=== PATIENT | female | born 1930 | race Caucasian/White ===

== ENCOUNTER 2016-04-10 17:06 | Inpatient (IN) | payer MEDICARE, OTHER ==
--- NOTE | 2016-04-10 17:19 | ED ---
Extremity Problem HPI - General Stated complaint: Fall/Hip Injury Time Seen by Provider: 04/10/16 17:07 Source: RN notes reviewed - History of Present Illness Initial comments: 86-year-old female presents emergency Department chief complaint of left hip pain. Patient was getting up from the chair she tripped and fell. Patient states that she fell onto her left side. Patient complains of left hip pain. Patient states she did hit her head. Son states that she did not. Waiting for left-sided had for some discomfort. Patient states it hurts if you touch or move the hip that if she sits still she does feel better. Patient did receive morphine via EMS. Patient states that she has no other symptoms at this time. Patient was not able to ambulate after the incident. Patient denies any recent fever, chills, shortness of breath, chest pain, back pain, abdominal pain, nausea vomiting, numbness or tingling, dysuria or hematuria, constipation or diarrhea, headaches or visual changes, or any other current symptoms. - Related Data Home Medications Medication Instructions Recorded Confirmed Aspirin 81 mg PO DAILY 09/16/15 04/10/16 Atorvastatin [Lipitor] 10 mg PO HS 09/16/15 04/10/16 Digoxin [Digitek] 125 mcg PO DAILY 09/16/15 04/10/16 Donepezil HCl [Aricept] 10 mg PO HS 09/16/15 04/10/16 Isosorbide Mononitrate [Isosorbide 30 mg PO QAM 09/16/15 04/10/16 Mononitrate ER] Sertraline [Zoloft] 100 mg PO HS 11/03/15 04/10/16 ALPRAZolam [Xanax] 0.5 mg PO DAILY PRN 04/10/16 04/10/16 Loratadine 10 mg PO DAILY 04/10/16 04/10/16 Mirtazapine [Remeron] 15 mg PO HS 04/10/16 04/10/16 traZODone HCL 100 mg PO HS PRN 04/10/16 04/10/16 Previous Rx's Medication Instructions Recorded amLODIPine [Norvasc] 5 mg PO DAILY #30 tab 10/04/15 HYDROcodone/APAP 7.5-325MG [Orrick 1 tab PO Q6HR PRN #20 tab 11/07/15 7.5-325] Allergies Allergy/AdvReac Type Severity Reaction Status Date / Time Penicillins Allergy Unknown Verified 04/10/16 17:53 Childhood Review of Systems ROS Statement: Those systems with pertinent positive or pertinent negative responses have been documented in the HPI. ROS Other: All systems not noted in ROS Statement are negative. Past Medical History Past Medical History: Asthma, CVA/TIA, Dementia, Hypertension Additional Past Medical History / Comment(s): heart murmur,leaky valves ,freq diarrhea,poor appetite. History of Any Multi-Drug Resistant Organisms: None Reported Past Surgical History: Appendectomy, Tonsillectomy Additional Past Surgical History / Comment(s): sigmodioscopy Past Anesthesia/Blood Transfusion Reactions: Motion Sickness Past Psychological History: Anxiety Additional Psychological History / Comment(s): OCD Smoking Status: Never smoker Past Alcohol Use History: None Reported Past Drug Use History: None Reported - Past Family History Son(s) Family Medical History: COPD, CVA/TIA Additional Family Medical History / Comment(s): brain aneurysm Mother History Unknown: Yes Father History Unknown: Yes General Exam - General Exam Comments Initial Comments: General: The patient is awake and alert, in no distress, and does not appear acutely ill. Eye: Pupils are equal, round and reactive to light, extra-ocular movements are intact; there is normal conjunctiva bilaterally. No signs of icterus. Ears, nose, mouth and throat: There are moist mucous membranes. Neck: The neck is supple, there is no tenderness. Cardiovascular: There is a regular rate and rhythm. No murmur, rub or gallop is appreciated. Respiratory: Lungs are clear to auscultation, respirations are non-labored, breath sounds are equal. No wheezes, stridor, rales, or rhonchi. Gastrointestinal: Soft, non-distended, non-tender abdomen without masses or organomegaly noted. There is no rebound or guarding present. No CVA tenderness. Bowel sounds are unremarkable. Back: There is no tenderness to palpation in the midline. There is no obvious deformity. No rashes noted. Musculoskeletal: Tenderness leftlateralaspectofthehipandintheleftgroinpatientdoeshavepositivepelvicrocktestn egativelogrolltest.Tendernesswithrangeofmotionofthehip. There is no pedal edema. There is no calf tenderness or swelling. Sensation intact. Pulses equal bilaterally 2+. Neurological: CN II-XII intact, There are no obvious motor or sensory deficits. Coordination appears grossly intact. Speech is normal. Skin: Skin is warm and dry and no rashes or lesions are noted. Psychiatric: Cooperative, appropriate mood & affect, normal judgment. Course Vital Signs 04/10/16 17:20 Temperature 97.2 F L Pulse Rate 68 Respiratory 18 Rate Blood Pressure 114/61 O2 Sat by Pulse 91 L Oximetry Medical Decision Making - Medical Decision Making 86-year-old male presents with left hip pain after fall. Patient is complaining of some left hip pain as well. At this time we will get an x-ray and CT. This time the x-ray and the CT are reviewed. Patient does appear to have a pelvic rami fracture. Patient is unable to bear weight in the room and unable to walk. At this time we will admit patient to Dr. marin hernandez. We will consult orthopedics for the patient as well. We discussed the family patient management treatment plan. Disposition Clinical Impression: Fall, Pelvis fracture, Unable to walk Disposition: ADMITTED IP TO THIS [facility] Condition: Stable Time of Disposition: 18:17 Decision Date: 04/10/16 Decision Time: 18:17
--- NOTE | 2016-04-10 17:38 | CT ---
EXAMINATION TYPE: CT brain wo con DATE OF EXAM: 04/10/2016 5:33 PM COMPARISON: 11/03/2015 HISTORY: Fall injury today. CT DLP: 912.6 mGycm Automated exposure control for dose reduction was used. FINDINGS: There is cerebral cortical atrophy. There is no mass effect nor midline shift. There is no evidence o f intracranial hemorrhage. The calvarium appears intact. IMPRESSION: Cerebral atrophy. No acute intracranial abnormality. No change.
--- NOTE | 2016-04-10 17:51 | XR ---
EXAMINATION TYPE: XR Hip LT and AP Pelvis DATE OF EXAM: 04/10/2016 5:40 PM COMPARISON: NONE HISTORY: Hip and pelvis pain TECHNIQUE: A single AP view of the pelvis is obtained. Two views of the left hip are obtained. FINDINGS: There is comminuted fracture of the left superior and inferior pubic rami near the pubic sy mphysis. The proximal femurs are intact. Hip joint spaces are fairly normal. Acetabula appear intact. IMPRESSION: There is comminuted pubic rami fractures on the left side without significant displacemen t. No hip joint fracture seen.
[2016-04-10] MEDS ORDERED: ACETAMINOPHEN TAB 500 MG TAB PO STA (18:09)
[2016-04-10] MEDS ORDERED: ONDANSETRON 4 MG/2 ML VIAL IVP PRN (18:17)
[2016-04-10] MEDS ORDERED: HYDROcodone/APAP 5-325MG 1 EACH TAB PO PRN (18:17)
[2016-04-10] MEDS ORDERED: ACETAMINOPHEN TAB 325 MG TAB PO PRN (18:17)
[2016-04-10] MEDS ORDERED: NALOXONE 0.4 MG/ML 1 ML VIAL IV PRN (18:17)
[2016-04-10] MEDS ORDERED: MORPHINE SULFATE 4 MG/ML SYRINGE IV PRN (18:17)
[2016-04-10] MEDS ORDERED: traZODone HCL 100 MG TAB PO PRN (18:18)
[2016-04-10] MEDS ORDERED: ALPRAZolam 0.5 MG TAB PO PRN (18:18)
[2016-04-10] MEDS ORDERED: HYDROcodone/APAP 7.5-325MG 1 EACH TAB PO PRN (18:18)
[2016-04-10] MEDS: SODIUM CHLORIDE 0.9% 1,000 ML IV SCH (18:56)
[2016-04-10 19:10] LABS: Basophils % (A) 0 %; CH 31.3; CHCM 32.9; Eosinophils # (A) 0.5 k/uL (0-0.7); Eosinophils % (A) 4 %; HCT 36.1 % (34.0-46.0); HDW 2.71; HGB 11.7 gm/dL (11.4-16.0); Luc % (Auto) 1; Lymphocytes # (A) 0.9 k/uL (1.0-4.8); Lymphocytes % (A) 7 %; MCH 31.2 pg (25.0-35.0); MCHC 32.6 g/dL (31.0-37.0); MCV 95.8 fL (80.0-100.0); Mean Platelet Volume 8.8; Monocytes # (A) 0.6 k/uL (0-1.0); Monocytes % (A) 5 %; Neutrophils % (A) 84 %; RBC 3.76 m/uL (3.80-5.40); RDW 14.4 % (11.5-15.5); WBC 13.1 k/uL (3.8-10.6); WBC (Perox) 14.23
[2016-04-10 19:25] LABS: ALT 28 U/L (9-52); AST 33 U/L (14-36); Alkaline Phosphatase 121 U/L (38-126); Anion Gap 9 mmol/L; Blood Urea Nitrogen 22 mg/dL (7-17); Calcium 8.9 mg/dL (8.4-10.2); Carbon Dioxide 27 mmol/L (22-30); Chloride 100 mmol/L (98-107); Glucose 103 mg/dL (74-99); Non-African American GFR(MDRD) >60 (>60 ml/min/1.73 sqM); Potassium 4.6 mmol/L (3.5-5.1); Sodium 136 mmol/L (137-145); Total Bilirubin 0.9 mg/dL (0.2-1.3); Total Protein 6.6 g/dL (6.3-8.2)
[2016-04-10] MEDS: DONEPEZIL 10 MG TAB PO SCH (21:43)
[2016-04-10] MEDS: MIRTAZAPINE 15 MG TAB PO SCH (21:43)
[2016-04-10] MEDS: ATORVASTATIN 10 MG TAB PO SCH (21:43)
[2016-04-10] MEDS: SERTRALINE 100 MG TAB PO SCH (21:43)
[2016-04-10] MEDS: KETOROLAC 30 MG/ML 1 ML VIAL IVP SCH (23:50)
[2016-04-11] MEDS: KETOROLAC 30 MG/ML 1 ML VIAL IVP SCH ×4 (05:27→23:10)
[2016-04-11] MEDS: ASPIRIN 81 MG CHEW PO SCH (08:20)
[2016-04-11] MEDS: LORATADINE 10 MG TAB PO SCH (08:20)
[2016-04-11] MEDS: amLODIPine 5 MG TAB PO SCH (08:20)
[2016-04-11] MEDS: ISOSORBIDE MONONITRATE ER 30 MG TAB.ER.24H PO SCH (08:21)
[2016-04-11] MEDS: DIGOXIN 125 MCG TAB PO SCH (08:23)
[2016-04-11 09:32] VITALS: BMI 16.0
--- NOTE | 2016-04-11 11:13 | P.CNOR ---
History of Present Illness - [facility] Consult date: 04/11/16 Consult reason: fracture History of present illness: This is a pleasant 86-year-old female who is seen and examined today bedside. Patient was admitted to [facility] on 04/10/2016 after sustaining a fall in her home. Patient was attempting to get out of her chair, she went to move right and slipped and fell on her left side. Patient was in the middle weight on the left lower extremity, she is brought to the hospital via EMS. Upon arrival to the emergency room, imaging and laboratory tests were done, images demonstrated a comminuted superior left pubic rami fracture and a nondisplaced inferior left pubic rami fracture. Patient was admitted to the hospital due for pain control and inability to ambulate. Patient is a rather active 86-year-old, she usually does not utilize any assistive devices for ambulation. She lives in a house with her son and [id number]. Patient denies any previous orthopedic surgery involving the left hip or left knee. Patient denies any pain involving the left knee, foot or ankle. She denies any pain involving the right lower extremity. Patient denies any pain in the bilateral upper extremities. She denies any new onset cervical or lumbar pain. Review of Systems Constitutional: Reports as per [facility] Past Medical History Past Medical History: Asthma, CVA/TIA, Dementia, Hypertension Additional Past Medical History / Comment(s): heart murmur,leaky valves ,freq diarrhea,poor appetite. History of Any Multi-Drug Resistant Organisms: None Reported Past Surgical History: Appendectomy, Tonsillectomy Additional Past Surgical History / Comment(s): sigmodioscopy Past Anesthesia/Blood Transfusion Reactions: Motion Sickness Past Psychological History: Anxiety Additional Psychological History / Comment(s): OCD Smoking Status: Never smoker Past Alcohol Use History: None Reported Past Drug Use History: None Reported - Past Family History Son(s) Family Medical History: COPD, CVA/TIA Additional Family Medical History / Comment(s): brain aneurysm Mother History Unknown: Yes Father History Unknown: Yes Medications and Allergies Home Medications Medication Instructions Recorded Confirmed Type Aspirin 81 mg PO DAILY 09/16/15 04/10/16 History Atorvastatin [Lipitor] 10 mg PO HS 09/16/15 04/10/16 History Digoxin [Digitek] 125 mcg PO DAILY 09/16/15 04/10/16 History Donepezil HCl [Aricept] 10 mg PO HS 09/16/15 04/10/16 History Isosorbide Mononitrate [Isosorbide 30 mg PO QAM 09/16/15 04/10/16 History Mononitrate ER] Sertraline [Zoloft] 100 mg PO HS 11/03/15 04/10/16 History ALPRAZolam [Xanax] 0.5 mg PO DAILY PRN 04/10/16 04/10/16 History Loratadine 10 mg PO DAILY 04/10/16 04/10/16 History Mirtazapine [Remeron] 15 mg PO HS 04/10/16 04/10/16 History traZODone HCL 100 mg PO HS PRN 04/10/16 04/10/16 History Allergies Allergy/AdvReac Type Severity Reaction Status Date / Time Penicillins Allergy Unknown Verified 04/10/16 17:53 Childhood Physical Examination Left lower extremity: None obvious open lesions present throughout the left lower extremity. There is no obvious areas of soft tissue swelling erythema. Patient is unable to straight leg raise due to pain. Logroll maneuver reproduces some discomfort in the pelvic region. She is able to extend and flex the knee minimally. Plantar flexion, dorsiflexion, EHL, FHL are intact. No tenderness with palpation over the greater trochanter the left side. Sensory exam to light touch throughout the extremity is intact. Dorsal pedis pulses 2+. Right lower extremity: Straight leg raise intact, logroll maneuver reproduces no pain. Plantar flexion , dorsiflexion, EHL, FHL are intact. Sensory exam to light touch is intact, cap refills less than 3 seconds. Upper extremities: Patient's motion intact in the bilateral upper extremities, no obvious tenderness on exam. Results - Labs Labs: Abnormal Lab Results - Last 24 Hours (Table) 04/10/16 04/10/16 Range/Units 18:57 18:57 WBC 13.1 H (3.8-10.6) k/uL RBC 3.76 L (3.80-5.40) m/uL Neutrophils # 11.0 H (1.3-7.7) k/uL Lymphocytes # 0.9 L (1.0-4.8) k/uL Sodium 136 L (137-145) mmol/L BUN 22 H (7-17) mg/dL Glucose 103 H (74-99) mg/dL H & H 04/10/16 Range/Units 18:57 Hgb 11.7 (11.4-16.0) gm/dL Hct 36.1 (34.0-46.0) % Result Diagrams: 04/10/16 18:57 04/10/16 18:57 - Diagnostic results Hip x-ray: report reviewed, image reviewed Assessment and Plan Plan: Imaging: Multiple views of the hip and pelvis were obtained, images demonstrated a comminuted fracture involving the left superior pubic rami, nondisplaced fracture of the left inferior pubic rami. Bilateral hip joints remain preserved. Assessment: 1. Comminuted left superior pubic rami fracture 2. Nondisplaced left inferior pubic rami fracture Plan: 1. I was able to discuss this case, including physical exam findings and images with Dr. Quiñones. No orthopedic surgical intervention needed at this time. We will continue conservative management at this point. 2. Weight-bear as tolerated with walker 3. Pain control 4. GI and DVT prophylaxis per medical recommendations 5. PT/OT evaluation 6. Discharge planning: Patient will likely benefit from short stay in a rehab facility to assist with ADLs until she can tolerate returning home Time with Patient: Less than 30
[2016-04-11] MEDS: SODIUM CHLORIDE 0.9% 1,000 ML IV SCH ×2 (11:36→23:49)
[2016-04-11] MEDS: ENOXAPARIN 40 MG/0.4 ML SYRINGE SQ SCH (17:58)
[2016-04-11] MEDS: DONEPEZIL 10 MG TAB PO SCH (20:52)
[2016-04-11] MEDS: ATORVASTATIN 10 MG TAB PO SCH (20:52)
[2016-04-11] MEDS: MIRTAZAPINE 15 MG TAB PO SCH (20:52)
[2016-04-11] MEDS: SERTRALINE 100 MG TAB PO SCH (20:52)
[2016-04-11 21:58] LABS: Appearance,Urine Clear (Clear); Bilirubin,Urine Negative (Negative); Glucose,Urine (UA) Negative (Negative); Ketones,Urine Negative (Negative); Leukocyte Esterase,Urine Negative (Negative); Nitrite,Urine Negative (Negative); PH, Urine 5.5 (5.0-8.0); Protein,Urine Trace (Negative); Specific Gravity,Urine 1.013 (1.001-1.035); UA Billing (MACRO vs. MICRO) CHEM; Urobilinogen,Urine <2.0 mg/dL (<2.0)
--- NOTE | 2016-04-11 23:22 | HP ---
DATE OF ADMISSION: 04/10/2016 PRESENTING COMPLAINT: Fall. HISTORY OF PRESENTING COMPLAINT: This is a very pleasant 86-year-old patient of Dr. Sanchez who slid out of a chair, fracturing her pubic bone. A lot of pain from the same. Patient's chronic stable conditions include hypertension, anxiety, osteoarthritis, aches and pains in the joints, and asthma. Lives with her family. Admitted for the same. REVIEW OF SYSTEMS: CONSTITUTIONAL: None. HEENT: Decreased hearing. CARDIOVASCULAR: None. GASTROINTESTINAL: None. GENITOURINARY: None. MUSCULOSKELETAL: Aches and pains in different joints. HEMATOLOGICAL: None. LYMPHATICS: None. PSYCHIATRY: Forgetful. NEUROLOGICAL: Anxiety. PAST MEDICAL HISTORY: 1. Hypertension. 2. Depression. 3. Insomnia. 4. Angina. 5. Arthritis. 6. Hypercholesterolemia. 7. Anxiety. PAST SURGICAL HISTORY: 1. Appendectomy. 2. Tonsillectomy. 3. Sigmoidoscopy. SOCIAL HISTORY: No smoking. No alcohol. Lives with 2 sons. FAMILY HISTORY: COPD, stroke, brain aneurysm. HOME MEDICATIONS: 1. Trazodone 100 mg at bedtime p.r.n. 2. Norvasc 5 mg a day. 3. Zoloft 100 mg p.o. at bedtime. 4. Remeron 15 mg at bedtime. 5. Claritin 10 mg p.o. daily. 6. Imdur ER 30 mg a day. 7. Godwin 7.5 one tablet q.6 p.r.n. 8. Aricept 10 mg p.o. at bedtime. 9. Digoxin 125 mcg p.o. daily. 10. Lipitor 10 mg p.o. at bedtime. 11. Aspirin 81 mg p.o. daily. 12. Xanax 0.5 p.o. daily p.r.n. ALLERGIES: PENICILLIN. On examination, temperature 97.2, pulse 60, respiration 18, blood pressure 104/61, pulse ox 91% on room air. GENERAL APPEARANCE: Thin build. BMI of 16. Lying in bed, tired-appearing. EYES: Pupils equal. Conjunctivae normal. HEENT: External appearance of nose and ears normal. Oral cavity normal. NECK: JVD not raised. Mass not palpable. RESPIRATORY: Effort normal. LUNGS: Slightly decreased breath sounds. CARDIOVASCULAR: First and second sounds normal. No edema. ABDOMEN: Soft, non-tender. Liver and spleen not palpable. LYMPHATIC: No lymph node palpable in neck or axillae. PSYCHIATRY: Patient is able answer simple questions. Knows the year, knows the month. She knows that she is in the hospital. MUSCULOSKELETAL: Evidence of osteoarthritis in multiple joints. Tenderness in the pubic area. INVESTIGATIONS: White count 13.1, hemoglobin 11.7. Potassium 3.6. Creatinine 0.84. CT scan of the brain shows atrophy. Hip and pelvis x-ray show a left pubic rami fracture. ASSESSMENT: 1. Acute left pubic rami fracture secondary to fall, including both the left superior and inferior pubic rami. 2. Primary osteoarthritis in multiple joints, bilateral. 3. Alzheimer's dementia, late onset, without psychosis. 4. Essential hypertension. 5. Depression not otherwise specified. 6. Chronic insomnia, idiopathic. 7. Possible angina. 8. Anxiety not otherwise specified. PLAN: Patient was put on Toradol for pain control. Of course patient finds it difficult to ambulate and will be high risk if she goes back the way she is. Orthopedics will be consulted. Home medications are resumed. DVT prophylaxis in place. Patient will definitely need to have some rehab before she can return to her surroundings. Otherwise she is high risk for fall and trauma to herself.
[2016-04-12] MEDS: KETOROLAC 30 MG/ML 1 ML VIAL IVP SCH (05:01)
[2016-04-12] MEDS: ASPIRIN 81 MG CHEW PO SCH (07:26)
[2016-04-12] MEDS: ISOSORBIDE MONONITRATE ER 30 MG TAB.ER.24H PO SCH (07:26)
[2016-04-12] MEDS: ENOXAPARIN 40 MG/0.4 ML SYRINGE SQ SCH (07:27)
[2016-04-12] MEDS: LORATADINE 10 MG TAB PO SCH (07:27)
[2016-04-12] MEDS: amLODIPine 5 MG TAB PO SCH (07:27)
[2016-04-12] MEDS: DIGOXIN 125 MCG TAB PO SCH (07:28)
--- NOTE | 2016-04-12 10:41 | XR ---
EXAMINATION TYPE: XR chest 2V DATE OF EXAM: 04/12/2016 9:57 AM HISTORY: ecf required. REFERENCE: Previous study dated 11/03/2015. FINDINGS: The lungs are overinflated. There are calcified apical pleural plaques present bilaterally. There is a small amount of left basilar airspace disease. This may represent atelectasis or pneumoni a. Heart size is upper limits of normal. Pleural spaces are clear. IMPRESSION: 1. COPD. 2. BORDERLINE CARDIOMEGALY. 3. MINIMAL LEFT BASILAR AIRSPACE DISEASE EITHER REPRESENTING ATELECTASIS OR PNEUMONIA.
[2016-04-12] MEDS: NAPROXEN 250 MG TAB PO SCH ×2 (14:01→21:24)
[2016-04-12 14:59] VITALS: RESP 16
[2016-04-12] MEDS: SODIUM CHLORIDE 0.9% 1,000 ML IV SCH (21:23)
[2016-04-12] MEDS: DONEPEZIL 10 MG TAB PO SCH (21:24)
[2016-04-12] MEDS: MIRTAZAPINE 15 MG TAB PO SCH (21:25)
[2016-04-12] MEDS: ATORVASTATIN 10 MG TAB PO SCH (21:25)
[2016-04-12] MEDS: SERTRALINE 100 MG TAB PO SCH (21:25)
--- NOTE | 2016-04-12 22:27 | PN ---
DATE OF SERVICE: 04/12/2016 PRESENTING COMPLAINT: Fall. INTERVAL HISTORY: This patient presented with pubic rami fracture. Awaiting placement and pain is better controlled. Tolerating a diet. Otherwise, comfortable. Review of systems done for constitutional, cardiovascular, GI, pulmonary, musculoskeletal; relevant findings as above. Current medications are reviewed. On examination, temperature 97.7, pulse 89, respiratory rate 17, blood pressure 123/79, pulse ox 92% on 2 liters. GENERAL APPEARANCE: Sitting up in a chair, comfortable. EYES: Pupils equal. Conjunctivae normal. NECK: JVD not raised. Mass not palpable. RESPIRATORY: Fair air entry. CARDIOVASCULAR: First and second sounds normal. No edema. ABDOMEN: Soft, nontender. PSYCHIATRY: Answering simple questions. INVESTIGATIONS: No blood work from today. ASSESSMENT: 1. Acute left pubic inferior and superior rami fracture secondary to fall. 2. Primary osteoarthritis of multiple joints, bilateral. 3. Alzheimer's dementia, late onset, without psychosis. 4. Essential hypertension. 5. Depression Not otherwise specified. 6. Chronic insomnia, idiopathic. 7. Possible angina. 8. Anxiety, not otherwise specified. PLAN: Continue current medication and treatment plan. Awaiting placement.
[2016-04-13 07:33] VITALS: BP 113/67; TEMP 97.5
[2016-04-13] MEDS: ENOXAPARIN 40 MG/0.4 ML SYRINGE SQ SCH (08:35)
[2016-04-13] MEDS: ISOSORBIDE MONONITRATE ER 30 MG TAB.ER.24H PO SCH (08:35)
[2016-04-13] MEDS: DIGOXIN 125 MCG TAB PO SCH (08:36)
[2016-04-13] MEDS: NAPROXEN 250 MG TAB PO SCH (08:36)
[2016-04-13] MEDS: LORATADINE 10 MG TAB PO SCH (08:36)
[2016-04-13] MEDS: ASPIRIN 81 MG CHEW PO SCH (08:36)
[2016-04-13] MEDS: amLODIPine 5 MG TAB PO SCH (08:36)
[2016-04-13 10:49] VITALS: PULSE 80
[2016-04-13] MEDS: SODIUM CHLORIDE 0.9% 1,000 ML IV SCH (13:43)
--- NOTE | 2016-04-13 15:10 | DS ---
DATE OF ADMISSION: 04/10/2016 DATE OF DISCHARGE: FINAL DIAGNOSIS(ES): 1. Acute left pubic inferior and superior rami fracture secondary to fall. 2. Gait dysfunction secondary to above. 3. Primary osteoarthritis multiple joints, bilateral. 4. Alzheimer's dementia, late onset, without psychosis. 5. Essential hypertension. 6. Depression, not otherwise specified. 7. Chronic insomnia, idiopathic. 8. Possible angina, chronic. 9. Anxiety, not otherwise specified. HOSPITAL COURSE: This patient presented with a fall with left inferior superior pubic rami fracture seen by Dr. Quiñones. No surgical intervention. The patient's pain is controlled with the current medication and the patient is able to carry out a simple conversation. On exam, lungs are clear. CARDIOVASCULAR: First and second sounds normal. DISCHARGE MEDICATIONS: 1. Lipitor 10 mg q.h.s. 2. Digoxin 125 mcg a day. 3. Aricept 10 mg q.h.s. 4. Imdur ER 30 mg p.o. daily. 5. Norvasc 5 mg p.o. daily. 6. Zoloft 100 mg p.o. q.h.s. 7. Xanax 0.5 mg p.o. daily p.r.n. 8. Remeron 50 mg p.o. q.h.s. 9. Trazodone 100 mg p.o. q.h.s. p.r.n. 10. Tylenol 650 mg q.6 p.r.n. 11. [place] 5 1 tablets q.4 p.r.n. 12. Naproxen 250 mg p.o. b.i.d. Follow up with Dr. Lopez in 2 days. Follow up with Dr. Quiñones in 2 weeks. Orthopedics ( ) weight bear as tolerated with walker. Ice left hip region first and medical relief. Discharge planning more than 35 minutes.
== END 2016-04-13 16:01 | DRG 536 ==
LOC: EC 17:06 → 3SUR 18:43
PROVIDERS: ADMIT Hospitalist; ATTEND Hospitalist
DX: S32.512A Fracture of superior rim of left pubis, initial encounter for closed fracture (principal); G30.1 Alzheimer's disease with late onset; I20.9 Angina pectoris, unspecified; I10 Essential (primary) hypertension; F02.80 Dementia in other diseases classified elsewhere, unspecified severity, without behavioral disturbance, psychotic disturbance, mood disturbance, and anxiety; F41.9 Anxiety disorder, unspecified; F42.9 Obsessive-compulsive disorder, unspecified; M19.91 Primary osteoarthritis, unspecified site; J45.909 Unspecified asthma, uncomplicated; F32.9 Major depressive disorder, single episode, unspecified; F51.04 Psychophysiologic insomnia; R26.2 Difficulty in walking, not elsewhere classified; E78.00 Pure hypercholesterolemia, unspecified; Z90.49 Acquired absence of other specified parts of digestive tract; Z79.82 Long term (current) use of aspirin; Z79.899 Other long term (current) drug therapy; Z86.73 Personal history of transient ischemic attack (TIA), and cerebral infarction without residual deficits; W07.XXXA Fall from chair, initial encounter; Y92.009 Unspecified place in unspecified non-institutional (private) residence as the place of occurrence of the external cause
CPT/HCPCS: 70450; 71020; 73502; 80053; 81003; 85025; 99285